=== PATIENT | female | born 1970 | race American Indian/Alaskan Native ===

== ENCOUNTER 2019-07-07 19:20 | Emergency (ER) | payer MEDICARE ==
[2019-07-07 20:20] VITALS: BP 130/93
--- NOTE | 2019-07-07 20:20 | Event Note ---
ED Screening Note Date of service: 07/07/19 Time: 20:18 ED Screening Note: This is a 49 y.o. F. that presents to the ER with right wrist pain for 1 week. Taking Tylenol with minimal improvement of symptoms. Denies recent injury. PMH HIV This initial assessment/diagnostic orders/clinical plan/treatment(s) is/are subject to change based on patients health status, clinical progression and re- assessment by fellow clinical providers in the ED. Further treatment and workup at subsequent clinical providers discretion. Patient/guardian urged not to elope from the ED as their condition may be serious if not clinically assessed and managed. Initial orders include: XR right wrist.
--- NOTE | 2019-07-07 22:16 | XRay Report ---
Right wrist-2 views INDICATION: lateral wrist pain. COMPARISON: None. IMPRESSION: Soft tissue laceration along the lateral aspect of the wrist the level of the proximal c arpal row with mild soft tissue swelling. No retained radiopaque foreign body or acute fracture. Norm al alignment. No significant DJD. Signer Name: Tyler Boyer MD Signed: 07/07/2019 10:11 PM Workstation Name: [id number]
[2019-07-07] MEDS ORDERED: DECADRON IM ONE (22:44)
--- NOTE | 2019-07-07 23:38 | Emergency Department Report ---
Upper Extremity - HPI Chief Complaint: Extremity Injury, Upper Stated Complaint: RT WRIST PAIN Time Seen by Provider: 07/07/19 20:18 Upper Extremity: Right Wrist Occurred When: 5 Days Severity: mild Symptoms: Yes Pain with Movement, No Deformity, No Limited Range of Movement, No Numbness, No Weakness, No Swelling, No Bruising/Ecchymosis, No Laceration or Abrasion Other History: This is a 49-year-old female presents to ED complaining of right wrist pain. Patient states that pain is tingling sensation that radiates to her last 2 fingers. Patient denies any injury, trauma or falls to the hand ED Review of Systems ROS: Stated complaint: RT WRIST PAIN Other details as noted in HPI Comment: All other systems reviewed and negative ED Past Medical Hx - Past Medical History Hx HIV: Yes - Surgical History Additional Surgical History: partial hysterectomy - Social History Smoking Status: Never Smoker Substance Use Type: None - Medications Home Medications: Home Medications Medication Instructions Recorded Confirmed Last Taken Type Ibuprofen [Motrin] 800 mg PO Q8HR #30 tablet 07/07/19 Unknown Rx predniSONE [Deltasone] 20 mg PO QDAY #7 tab 07/07/19 Unknown Rx Upper Extremity Exam - Exam General: Vital signs noted. No distress. Alert and acting appropriately. Head and Torso: No HEENT Abnormality, No Neck Tenderness, No Chest/Lungs Abnormality, No Abdominal Tenderness, No Back Tenderness Shoulder Exam: Yes Normal Range of Motion in Shoulder, No Shoulder Tenderness, No Clavicle Tenderness, No Shoulder Deformity, No AC Joint Tenderness Arm Exam: No Arm/Humerus Tenderness, No Arm Deformity Elbow: No Elbow Tenderness, No Normal Range of Motion in Elbow, No Elbow Deformity Forearm: No Forearm Tenderness, No Forearm Deformity, No Pain with Pronation, No Pain with Supination Wrist: Yes Normal ROM in Wrist, No Wrist Tenderness, No Wrist Deformity, No Snuffbox Tenderness, No Pain with Axial Thumb Compression Hand: Yes Normal ROM in Digit(s), No Hand Tenderness, No Hand Deformity, No Digit Tenderness, No Digit(s) Deformity, No Tendon Dysfunction CMS Exam: No Broken Skin, No Normal Distal Pulses, No Normal Capillary Refill, No Normal Distal Sensation ED Course Vital Signs 07/07/19 20:18 Temperature 98.1 F Pulse Rate 81 Respiratory 19 Rate Blood Pressure 130/93 [Left] O2 Sat by Pulse 96 Oximetry ED Medical Decision Making - Medical Decision Making 49-year-old female presents with upper tunnel of the right hand. Patient received Decadron injection in the ED. X-ray shows no acute findings. Discussed with patient. Discussed the patient follow up with orthopedic doctor for analysis treatment Vital signs are normal patient is in no acute distress Critical care attestation.: If time is entered above; I have spent that time in minutes in the direct care of this critically ill patient, excluding procedure time. ED Disposition Clinical Impression: Carpal tunnel syndrome of right wrist Disposition: TO HOME OR SELFCARE Condition: Stable Instructions: Carpal Tunnel Syndrome (ED) Additional Instructions: Make sure to follow up with the primary care physician as discussed. Take all your medications as you've been prescribed. If you have any worsening symptoms or develop new symptoms please return to ED immediately. Prescriptions: predniSONE [Deltasone] 20 mg PO QDAY #7 tab Ibuprofen [Motrin] 800 mg PO Q8HR #30 tablet Referrals: PRIMARY CAREMD [Primary Care Provider] - 3-5 Days HELENA GARCIA MD [Staff Physician] - 3-5 Days [facility] [Provider Group] - 3-5 Days Forms: Accompanied Note, Work/School Release Form(ED) Time of Disposition: 23:39
== END 2019-07-07 23:52 | disposition home or self-care (01) ==
LOC: ED 19:20
DX: G56.01 Carpal tunnel syndrome, right upper limb (principal); Z90.710 Acquired absence of both cervix and uterus; Z88.1 Allergy status to other antibiotic agents; Z88.2 Allergy status to sulfonamides
CPT/HCPCS: 73100; 96372; 99283; J1100